=== PATIENT | male | born 1980 | race American Indian/Alaskan Native ===

== ENCOUNTER 2021-05-03 01:23 | Emergency (ER) | payer SELFPAY ==
[2021-05-03] MEDS ORDERED: ACETAMINOPHEN 500 MG TAB PO ONE (04:58)
--- NOTE | 2021-05-03 05:54 | XRay Report ---
LEFT ANKLE 3 VIEWS INDICATION / CLINICAL INFORMATION: Left ankle pain/injury COMPARISON: None available. FINDINGS: BONES and JOINT(S): No acute fracture or subluxation. No significant arthritis. SOFT TISSUES: No significant abnormality. ADDITIONAL FINDINGS: None. IMPRESSION: 1. No acute findings. Signer Name: Carson Sanchez MD Signed: 05/03/2021 5:50 AM Workstation Name: [id number]
--- NOTE | 2021-05-03 05:59 | XRay Report ---
LEFT KNEE 3 VIEWS INDICATION / CLINICAL INFORMATION: Left knee injury after fall. COMPARISON: None available. FINDINGS: BONES and JOINT(S): No acute fracture or subluxation. There is moderate tricompartmental osteoarthrit is. SOFT TISSUES: Mild generalized edema is noted with calcification seen laterally along the knee. ADDITIONAL FINDINGS: None. IMPRESSION: 1. No acute findings. 2. Moderate osteoarthritis. Signer Name: Carson Sanchez MD Signed: 05/03/2021 5:54 AM Workstation Name: [id number]
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
[2021-05-03] MEDS ORDERED: IBUPROFEN 600 MG TAB PO ONE (06:37)
[2021-05-03] MEDS ORDERED: cloNIDine 0.1 MG TAB PO ONE (06:37)
[2021-05-03 07:49] VITALS: BP 162/94
== END 2021-05-03 07:54 | disposition home or self-care (01) ==
LOC: ED 01:23
DX: S83.92XA Sprain of unspecified site of left knee, initial encounter (principal); S90.02XA Contusion of left ankle, initial encounter; I10 Essential (primary) hypertension; Z87.891 Personal history of nicotine dependence; W19.XXXA Unspecified fall, initial encounter; Y93.53 Activity, golf; Y92.39 Other specified sports and athletic area as the place of occurrence of the external cause; Y99.8 Other external cause status
CPT/HCPCS: 99283

== ENCOUNTER 2021-11-02 18:06 | Inpatient (IN) | payer OTHER ==
--- NOTE | 2021-11-02 20:46 | Event Note ---
ED Screening Note Date of service: 11/02/21 Time: 20:45 ED Screening Note: Patient presents from his PCP for possible new onset CHF He complains of bilateral leg swelling and shortness of breath for 2 months History of hypertension, patient has been off of his blood pressure medication for 5 months He also admits to some chest pains Patient is morbidly obese This initial assessment/diagnostic orders/clinical plan/treatment(s) is/are subject to change based on patients health status, clinical progression and re- assessment by fellow clinical providers in the ED. Further treatment and workup at subsequent clinical providers discretion. Patient/guardian urged not to elope from the ED as their condition may be serious if not clinically assessed and managed. Initial orders include: Labs Chest x-ray EKG
[2021-11-02 20:56] LABS: Basophils % (Auto) 0.4 % (0.0-1.8); Eosinophils # (Auto) 0.3 K/mm3 (0.0-0.4); Lymphocytes # (Auto) 1.3 K/mm3 (1.2-5.4); Lymphocytes % (Auto) 19.7 % (13.4-35.0); Mean Corpuscular HGB Conc 31 % (32-34); Mean Corpuscular Volume 85 fl (84-94); Monocytes # (Auto) 0.6 K/mm3 (0.0-0.8); Monocytes % (Auto) 8.4 % (0.0-7.3); Platelet Count 247 K/mm3 (140-440); Red Blood Count 5.19 M/mm3 (3.65-5.03); Red Cell Distribution Width 15.5 % (13.2-15.2)
[2021-11-02 20:58] LABS: Hematocrit 43.9 % (35.5-45.6); Hemoglobin 13.5 gm/dl (11.8-15.2)
--- NOTE | 2021-11-02 21:02 | XRay Report ---
CHEST 2 VIEWS INDICATION / CLINICAL INFORMATION: SOB. COMPARISON: None available. FINDINGS: SUPPORT DEVICES: None. HEART / MEDIASTINUM: No significant abnormality. LUNGS / PLEURA: Bilateral interstitial prominence. No pneumothorax. ADDITIONAL FINDINGS: Numerous metallic BBs in the left chest wall. IMPRESSION: 1. Bilateral interstitial prominence can be seen with mild edema or small airways disease. Recommend clinical correlation. Signer Name: Jung Cunha MD Signed: 11/02/2021 8:58 PM Workstation Name: [id number]
[2021-11-02] MEDS ORDERED: FUROSEMIDE 40 MG/4 ML INJ IV ONE (21:03)
[2021-11-02 21:23] LABS: Alanine Aminotransferase 27 units/L (7-56); Albumin 3.8 g/dL (3.9-5); BUN/Creatinine Ratio 10; Blood Urea Nitrogen 11 mg/dL (9-20); Calcium 9.2 mg/dL (8.4-10.2); Hemolysis Index 5
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
[2021-11-03] MEDS ORDERED: ONDANSETRON 4 MG/2 ML INJ IV PRN (00:49)
[2021-11-03] MEDS ORDERED: ALBUTEROL 2.5 MG/3 ML NEBU IH PRN (00:49)
[2021-11-03] MEDS ORDERED: HYDROmorphone 1 MG/1 ML INJ IV PRN (00:49)
[2021-11-03] MEDS ORDERED: MORPHINE 2 MG/1 ML INJ IV PRN (00:49)
[2021-11-03] MEDS ORDERED: NITROGLYCERIN 0.4 MG TAB SUBL SL PRN (00:49)
[2021-11-03] MEDS ORDERED: ACETAMINOPHEN 325 MG TAB PO PRN (00:49)
[2021-11-03] MEDS ORDERED: BACLOFEN 10 MG TAB PO PRN (00:52)
[2021-11-03] MEDS ORDERED: traMADol 50 MG TAB PO PRN (00:52)
--- NOTE | 2021-11-03 00:58 | History and Physical Report ---
<BEN LUCAS - Last Filed: 11/03/21 00:53> History of Present Illness Date of examination: 11/03/21 Date of admission: 11/03/21 Chief complaint: Shortness of breath leg swelling History of present illness: 41-year-old male with past medical history of hypertension who is noncompliant with medications and morbid obesity was brought to the emergency room because of shortness of breath for the last couple of weeks. Patient has had increased shortness of breath with exertion orthopnea leg swelling. Patient states he can walk only a few feet without getting short of breath. Patient also states that he has had some episodes of narcolepsy where he will be sitting and follow-up sleep for several hours. Denies any chest pain fever chills cough cold or congestion at this time. In the emergency room patient proBNP is 56.66 but chest x-ray shows bilateral interstitial prominence can be seen with mild edema or small airway disease. So going to admit the patient with diagnosis of CHF. We will put the patient on CHF pathway and order echocardiogram Med rec is done Past History Past Medical History: hypertension, other (Morbid obesity) Medications and Allergies Allergies Allergy/AdvReac Type Severity Reaction Status Date / Time No Known Allergies Allergy Verified 11/02/21 19:48 Home Medications Medication Instructions Recorded Confirmed Last Taken Type Baclofen 20 mg PO Q12H PRN #24 tablet 05/03/21 Unknown Rx Ibuprofen [Motrin] 800 mg PO Q8HR PRN #30 tablet 05/03/21 Unknown Rx amLODIPine 10 mg PO DAILY #30 tab 05/03/21 Unknown Rx lisinopriL [Lisinopril] 20 mg PO DAILY #30 tablet 05/03/21 Unknown Rx traMADoL [Ultram] 50 mg PO Q6HR PRN #12 tablet 05/03/21 Unknown Rx Review of Systems All systems: negative Cardiovascular: edema, shortness of breath, dyspnea on exertion, high blood pressure, leg edema Respiratory: shortness of breath, dyspnea on exertion Exam - Constitutional Vitals: Temp Pulse Resp BP Pulse Ox 99.3 F 95 H 20 178/99 92 11/02/21 19:43 11/02/21 19:43 11/02/21 19:43 11/02/21 19:43 11/02/21 19:43 General appearance: Present: no acute distress, well-nourished - EENT Eyes: Present: PERRL ENT: hearing intact, clear oral mucosa - Neck Neck: Present: supple, normal ROM - Respiratory Respiratory effort: normal Respiratory: bilateral: rales - Cardiovascular Heart Sounds: Present: S1 & S2. Absent: rub, click - Extremities Extremities: pulses symmetrical Extremity abnormal: edema Peripheral Pulses: within normal limits - Abdominal General gastrointestinal: Present: soft, non-tender, non-distended, normal bowel sounds Male genitourinary: Present: normal - Integumentary Integumentary: Present: clear, warm, dry - Musculoskeletal Musculoskeletal: gait normal, strength equal bilaterally - Psychiatric Psychiatric: appropriate mood/affect, intact judgment & insight - Neurologic Neurologic: CNII-XII intact, moves all extremities HEART Score - HEART Score Troponin: Troponin T < 0.010 ng/mL (0.00-0.029) 11/02/21 20:39 Results - Labs CBC & Chem 7: 11/02/21 20:39 11/02/21 20:39 Labs: Laboratory Last Values WBC 6.8 K/mm3 (4.5-11.0) 11/02/21 20:39 RBC 5.19 M/mm3 (3.65-5.03) H 11/02/21 20:39 Hgb 13.5 gm/dl (11.8-15.2) 11/02/21 20:39 Hct 43.9 % (35.5-45.6) 11/02/21 20:39 MCV 85 fl (84-94) 11/02/21 20:39 MCH 26 pg (28-32) L 11/02/21 20:39 MCHC 31 % (32-34) L 11/02/21 20:39 RDW 15.5 % (13.2-15.2) H 11/02/21 20:39 Plt Count 247 K/mm3 (140-440) 11/02/21 20:39 Lymph % (Auto) 19.7 % (13.4-35.0) 11/02/21 20:39 [place] % (Auto) 8.4 % (0.0-7.3) H 11/02/21 20:39 Eos % (Auto) 5.0 % (0.0-4.3) H 11/02/21 20:39 Baso % (Auto) 0.4 % (0.0-1.8) 11/02/21 20:39 Lymph # (Auto) 1.3 K/mm3 (1.2-5.4) 11/02/21 20:39 [place] # (Auto) 0.6 K/mm3 (0.0-0.8) 11/02/21 20:39 Eos # (Auto) 0.3 K/mm3 (0.0-0.4) 11/02/21 20:39 Baso # (Auto) 0.0 K/mm3 (0.0-0.1) 11/02/21 20:39 Seg Neutrophils % 66.5 % (40.0-70.0) 11/02/21 20:39 Seg Neutrophils # 4.5 K/mm3 (1.8-7.7) 11/02/21 20:39 Sodium 142 mmol/L (137-145) 11/02/21 20:39 Potassium 3.8 mmol/L (3.6-5.0) 11/02/21 20:39 Chloride 100.4 mmol/L (98-107) 11/02/21 20:39 Carbon Dioxide 29 mmol/L (22-30) 11/02/21 20:39 Anion Gap 16 mmol/L 11/02/21 20:39 BUN 11 mg/dL (9-20) 11/02/21 20:39 Creatinine 1.1 mg/dL (0.8-1.3) 11/02/21 20:39 Estimated GFR > 60 ml/min 11/02/21 20:39 BUN/Creatinine Ratio 10 % 11/02/21 20:39 Glucose 128 mg/dL (75-100) H 11/02/21 20:39 Calcium 9.2 mg/dL (8.4-10.2) 11/02/21 20:39 Total Bilirubin 0.20 mg/dL (0.1-1.2) 11/02/21 20:39 AST 21 units/L (5-40) 11/02/21 20:39 ALT 27 units/L (7-56) 11/02/21 20:39 Alkaline Phosphatase 75 units/L (35-129) 11/02/21 20:39 Troponin T < 0.010 ng/mL (0.00-0.029) 11/02/21 20:39 NT-Pro-B Natriuret Pep 56.66 pg/mL (0-450) 11/02/21 20:39 Total Protein 7.5 g/dL (6.3-8.2) 11/02/21 20:39 Albumin 3.8 g/dL (3.9-5) L 11/02/21 20:39 Albumin/Globulin Ratio 1.0 % 11/02/21 20:39 - Imaging and Cardiology Chest x-ray: report reviewed Assessment and Plan VTE prophylaxis?: Chemical Plan of care discussed with patient/family: Yes - Patient Problems (1) Acute exacerbation of CHF (congestive heart failure) Current Visit: Yes Status: Acute Plan to address problem: Admit the patient to the [facility]. Put the patient on 2 g sodium diet. Fluid restriction. Lasix 40 mg IV every 12 hours. Maintain input output. Daily weight. Echocardiogram. Consult cardiology if needed (2) Morbid obesity Current Visit: Yes Status: Acute Plan to address problem: We counseled the patient regarding weight reduction. Outpatient referral with bariatric surgery (3) Hypertensive urgency Current Visit: Yes Status: Acute Plan to address problem: Lisinopril 20 mg p.o. daily. Amlodipine 10 mg p.o. daily. Hydralazine 10 mg IV every 6 hours as needed. We will monitor the patient closely (4) Hypoxia Current Visit: Yes Status: Acute Plan to address problem: Oxygen by nasal cannula 3 L/min. DuoNeb by nebulizer every 4 hours. Albuterol via nebulizer every 4 hours as needed (5) DVT prophylaxis Current Visit: Yes Status: Acute Plan to address problem: Heparin 5000 units subcu every 8 hours for DVT prophylaxis. Pepcid 20 mg p.o. twice daily for GI prophylaxis. Patient is a full code <PACHECO JACKMAN R - Last Filed: 11/04/21 02:51> History of Present Illness Date of admission: 11/03/21 00:49 Medications and Allergies Active Meds: Active Medications Acetaminophen (Acetaminophen 325 Mg Tab) 650 mg PO Q4H PRN PRN Reason: Pain MILD(1-3)/Fever >100.5/MOORE Albuterol (Albuterol 2.5 Mg/3 Ml Nebu) 2.5 mg IH Q4HRT PRN PRN Reason: Shortness Of Breath Albuterol/Ipratropium (Ipratropium/Albuterol Sulfate 3 Ml Ampul.Neb) 1 ampul IH Q6HRT [facility] Last Admin: 11/03/21 21:34 Dose: 1 ampul Amlodipine Besylate (Amlodipine 10 Mg Tab) 10 mg PO DAILY [facility] Last Admin: 11/03/21 11:00 Dose: 10 mg Baclofen (Baclofen 10 Mg Tab) 20 mg PO Q12H PRN PRN Reason: Muscle Spasm Last Admin: 11/03/21 12:32 Dose: 20 mg Famotidine (Famotidine 20 Mg Tab) 20 mg PO BID [facility] Last Admin: 11/03/21 22:51 Dose: 20 mg Furosemide (Furosemide 40 Mg/4 Ml Inj) 40 mg IV BID@0600,1800 [facility] Last Admin: 11/03/21 19:43 Dose: 40 mg Heparin Sodium (Porcine) (Heparin 5,000 Unit/1 Ml Vial) 5,000 unit SUB-Q Q8HR [facility] Last Admin: 11/03/21 22:49 Dose: 5,000 unit Hydralazine HCl (Hydralazine 20 Mg/1 Ml Inj) 10 mg IV Q6H PRN PRN Reason: Blood Pressure Lisinopril (Lisinopril 20 Mg Tab) 20 mg PO DAILY [facility] Last Admin: 11/03/21 11:00 Dose: 20 mg Nitroglycerin (Nitroglycerin 0.4 Mg Tab Subl) 0.4 mg SL .Q5MIN PRN PRN Reason: Chest Pain Ondansetron HCl (Ondansetron 4 Mg/2 Ml Inj) 4 mg IV Q8H PRN PRN Reason: Nausea And Vomiting Sodium Chloride (Sodium Chloride 0.9% 10 Ml Flush Syringe) 10 ml IV BID [facility] Last Admin: 11/03/21 22:51 Dose: 10 ml Sodium Chloride (Sodium Chloride 0.9% 50 Ml Ivpb) 10 ml IV PRN PRN PRN Reason: FLUSH Tramadol HCl (Tramadol 50 Mg Tab) 50 mg PO Q6H PRN PRN Reason: PAIN (1-3) Last Admin: 11/03/21 12:28 Dose: 50 mg Exam - Constitutional Vitals: Temp Pulse Resp BP Pulse Ox 98.1 F 89 16 108/69 92 11/03/21 22:04 11/03/21 22:04 11/03/21 22:04 11/03/21 22:04 11/04/21 00:49 HEART Score - HEART Score Troponin: Troponin T < 0.010 ng/mL (0.00-0.029) 11/02/21 20:39 Results - Labs CBC & Chem 7: 11/02/21 20:39 11/03/21 13:01 Labs: Laboratory Last Values WBC 6.8 K/mm3 (4.5-11.0) 11/02/21 20:39 RBC 5.19 M/mm3 (3.65-5.03) H 11/02/21 20:39 Hgb 13.5 gm/dl (11.8-15.2) 11/02/21 20:39 Hct 43.9 % (35.5-45.6) 11/02/21 20:39 MCV 85 fl (84-94) 11/02/21 20:39 MCH 26 pg (28-32) L 11/02/21 20:39 MCHC 31 % (32-34) L 11/02/21 20:39 RDW 15.5 % (13.2-15.2) H 11/02/21 20:39 Plt Count 247 K/mm3 (140-440) 11/02/21 20:39 Lymph % (Auto) 19.7 % (13.4-35.0) 11/02/21 20:39 Swift % (Auto) 8.4 % (0.0-7.3) H 11/02/21 20:39 Eos % (Auto) 5.0 % (0.0-4.3) H 11/02/21 20:39 Baso % (Auto) 0.4 % (0.0-1.8) 11/02/21 20:39 Lymph # (Auto) 1.3 K/mm3 (1.2-5.4) 11/02/21 20:39 [place] # (Auto) 0.6 K/mm3 (0.0-0.8) 11/02/21 20:39 Eos # (Auto) 0.3 K/mm3 (0.0-0.4) 11/02/21 20:39 Baso # (Auto) 0.0 K/mm3 (0.0-0.1) 11/02/21 20:39 Seg Neutrophils % 66.5 % (40.0-70.0) 11/02/21 20:39 Seg Neutrophils # 4.5 K/mm3 (1.8-7.7) 11/02/21 20:39 D-Dimer 348.06 ng/mlDDU (0-234) H 11/03/21 13:01 Sodium 143 mmol/L (137-145) 11/03/21 13:01 Potassium 3.6 mmol/L (3.6-5.0) 11/03/21 13:01 Chloride 98.0 mmol/L (98-107) 11/03/21 13:01 Carbon Dioxide 35 mmol/L (22-30) H 11/03/21 13:01 Anion Gap 14 mmol/L 11/03/21 13:01 BUN 10 mg/dL (9-20) 11/03/21 13:01 Creatinine 1.1 mg/dL (0.8-1.3) 11/03/21 13:01 Estimated GFR > 60 ml/min 11/03/21 13:01 BUN/Creatinine Ratio 9 % 11/03/21 13:01 Glucose 144 mg/dL (75-100) H 11/03/21 13:01 Calcium 9.0 mg/dL (8.4-10.2) 11/03/21 13:01 Magnesium 1.80 mg/dL (1.7-2.3) 11/03/21 13:01 Total Bilirubin 0.20 mg/dL (0.1-1.2) 11/02/21 20:39 AST 21 units/L (5-40) 11/02/21 20:39 ALT 27 units/L (7-56) 11/02/21 20:39 Alkaline Phosphatase 75 units/L (35-129) 11/02/21 20:39 Lactate Dehydrogenase 227 units/L (91-180) H 11/03/21 13:01 Troponin T < 0.010 ng/mL (0.00-0.029) 11/02/21 20:39 C-Reactive Protein 1.20 mg/dL (0.00-1.30) 11/03/21 13:01 NT-Pro-B Natriuret Pep 56.66 pg/mL (0-450) 11/02/21 20:39 Total Protein 7.5 g/dL (6.3-8.2) 01/24/22 20:39 Albumin 3.8 g/dL (3.9-5) L 11/02/21 20:39 Albumin/Globulin Ratio 1.0 % 11/02/21 20:39 Assessment and Plan Assessment and plan: Chart reviewed, patient interviewed and examined the ED on 11/03/2021 with about 11:30 AM. Patient is extremely morbidly obese. He was never screen for 0.6. Potassium history he has is hypertension. He has been experiencing worsening dyspnea since 3 months in went to see his PCP yesterday primary referred to ER. Not vaccinated against Covidien 19. Is currently alert and oriented without distress. O2 was weaned to room air currently. No significant cough. No fever or chills. On exam, no acute respiratory distress, lungs clear, heart regular rhythm, abdomen obese nontender, two to 3+ pretibial edema. COVID-19 PCR test ordered/pending. Chest x-ray is borderline abnormal. Echo is pending. Labs fairly unremarkable. D-dimer normal. CRP 1.5. We will continue current management awaiting echo report. Discussed with the patient in detail.
[2021-11-03] MEDS ORDERED: hydrALAZINE 20 MG/1 ML INJ IV PRN (01:00)
[2021-11-03] MEDS: HEPARIN 5,000 UNIT/1 ML VIAL SUB-Q SCH ×3 (06:46→22:49)
[2021-11-03] MEDS: FUROSEMIDE 40 MG/4 ML INJ IV SCH ×2 (06:46→19:43)
[2021-11-03] MEDS ORDERED: SODIUM CHLORIDE 0.9% 50 ML IVPB IV PRN (07:45)
--- NOTE | 2021-11-03 09:00 | Electrocardiograph Report ---
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
[2021-11-03] MEDS: FAMOTIDINE 20 MG TAB PO SCH ×2 (10:00→22:51)
[2021-11-03] MEDS: LISINOPRIL 20 MG TAB PO SCH (11:00)
[2021-11-03] MEDS: amLODIPine 10 MG TAB PO SCH (11:00)
[2021-11-03 13:31] LABS: BUN/Creatinine Ratio 9; Blood Urea Nitrogen 10 mg/dL (9-20); Hemolysis Index 7
[2021-11-03 13:35] LABS: C-Reactive Protein 1.2 mg/dL (0.00-1.30)
[2021-11-03] MEDS: IPRATROPIUM/ALBUTEROL SULFATE 3 ML AMPUL.NEB IH SCH ×2 (21:34)
[2021-11-04] MEDS: IPRATROPIUM/ALBUTEROL SULFATE 3 ML AMPUL.NEB IH SCH ×3 (03:24→20:01)
[2021-11-04] MEDS: FUROSEMIDE 40 MG/4 ML INJ IV SCH ×2 (06:35→18:06)
[2021-11-04] MEDS: HEPARIN 5,000 UNIT/1 ML VIAL SUB-Q SCH ×2 (06:35→14:26)
--- NOTE | 2021-11-04 08:53 | Electrocardiograph Report ---
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
[2021-11-04] MEDS: LISINOPRIL 20 MG TAB PO SCH (10:36)
[2021-11-04] MEDS: FAMOTIDINE 20 MG TAB PO SCH (10:36)
[2021-11-04] MEDS: amLODIPine 10 MG TAB PO SCH (10:36)
[2021-11-04 11:57] LABS: Basophils % (Auto) 0.4 % (0.0-1.8); Eosinophils # (Auto) 0.3 K/mm3 (0.0-0.4); Eosinophils % (Auto) 4.6 % (0.0-4.3); Lymphocytes # (Auto) 1.2 K/mm3 (1.2-5.4); Lymphocytes % (Auto) 17.6 % (13.4-35.0); Mean Corpuscular HGB Conc 31 % (32-34); Mean Corpuscular Volume 84 fl (84-94); Monocytes # (Auto) 0.5 K/mm3 (0.0-0.8); Monocytes % (Auto) 7.3 % (0.0-7.3); Platelet Count 254 K/mm3 (140-440); Red Blood Count 5.51 M/mm3 (3.65-5.03); Red Cell Distribution Width 15.5 % (13.2-15.2)
[2021-11-04 11:59] LABS: Hemoglobin 14.1 gm/dl (11.8-15.2)
[2021-11-04 12:00] LABS: Hematocrit 46.2 % (35.5-45.6)
[2021-11-04 12:10] LABS: BUN/Creatinine Ratio 13; Blood Urea Nitrogen 13 mg/dL (9-20); Calcium 9.5 mg/dL (8.4-10.2); Hemolysis Index 13
[2021-11-04 12:12] LABS: Alanine Aminotransferase 28 units/L (7-56); BUN/Creatinine Ratio 11; Blood Urea Nitrogen 12 mg/dL (9-20); Calcium 9.4 mg/dL (8.4-10.2); Hemolysis Index 15
--- NOTE | 2021-11-04 13:21 | Consultation ---
History of Present Illness Consult date: 11/04/21 Consult reason: shortness of breath, other (Edema) History of present illness: The patient is a 41-year-old man with morbid obesity, sleep apnea and chronic hypertension. He reports noncompliance with management of his multiple com orbidities, has not seen a doctor in several years and has not complied with antihypertensive therapy. He reported to his doctor for the first time yesterday, complaining of 1 to 2 weeks of lower extremity edema, fatigue and shortness of breath. He was sent to the emergency room for further evaluation and management. Systolic blood pressure was 178 on arrival to the emergency room. Cardiology consultation was requested to assess him for possible congestive heart failure. The patient denies chest pain, denies palpitations, denies any prior cardiac history. Work-up with an ECG in the emergency room showed a normal sinus rhythm, leftward axis, but otherwise normal ECG. Chest x-ray revealed a normal- sized cardiac silhouette and clear lungs with no heart failure or interstitial edema. Troponin level was negative. Today, he underwent an echocardiogram that showed left ventricular systolic function at the lower limits of normal, ejection fraction 45 to 50%. There was moderate, concentric left ventricle hypertrophy. There were no severe valvular lesions noted. Past History Past Medical History: hypertension, other (Morbid obesity) Medications and Allergies Allergies Allergy/AdvReac Type Severity Reaction Status Date / Time No Known Allergies Allergy Verified 11/02/21 19:48 Home Medications Medication Instructions Recorded Confirmed Last Taken Type Baclofen 20 mg PO Q12H PRN #24 tablet 05/03/21 Unknown Rx Ibuprofen [Motrin] 800 mg PO Q8HR PRN #30 tablet 05/03/21 Unknown Rx amLODIPine 10 mg PO DAILY #30 tab 05/03/21 Unknown Rx lisinopriL [Lisinopril] 20 mg PO DAILY #30 tablet 05/03/21 Unknown Rx traMADoL [Ultram] 50 mg PO Q6HR PRN #12 tablet 05/03/21 Unknown Rx Active Meds: Active Medications Acetaminophen (Acetaminophen 325 Mg Tab) 650 mg PO Q4H PRN PRN Reason: Pain MILD(1-3)/Fever >100.5/MOORE Albuterol (Albuterol 2.5 Mg/3 Ml Nebu) 2.5 mg IH Q4HRT PRN PRN Reason: Shortness Of Breath Albuterol/Ipratropium (Ipratropium/Albuterol Sulfate 3 Ml Ampul.Neb) 1 ampul IH TIDRT [facility] Last Admin: 11/04/21 13:05 Dose: 1 ampul Amlodipine Besylate (Amlodipine 10 Mg Tab) 10 mg PO DAILY [facility] Last Admin: 11/04/21 10:36 Dose: 10 mg Baclofen (Baclofen 10 Mg Tab) 20 mg PO Q12H PRN PRN Reason: Muscle Spasm Last Admin: 11/03/21 12:32 Dose: 20 mg Famotidine (Famotidine 20 Mg Tab) 20 mg PO BID [facility] Last Admin: 11/04/21 10:36 Dose: 20 mg Furosemide (Furosemide 40 Mg/4 Ml Inj) 40 mg IV BID@0600,1800 [facility] Last Admin: 11/04/21 06:35 Dose: 40 mg Heparin Sodium (Porcine) (Heparin 5,000 Unit/1 Ml Vial) 5,000 unit SUB-Q Q8HR [facility] Last Admin: 11/04/21 06:35 Dose: 5,000 unit Hydralazine HCl (Hydralazine 20 Mg/1 Ml Inj) 10 mg IV Q6H PRN PRN Reason: Blood Pressure Lisinopril (Lisinopril 20 Mg Tab) 20 mg PO DAILY [facility] Last Admin: 11/04/21 10:36 Dose: 20 mg Nitroglycerin (Nitroglycerin 0.4 Mg Tab Subl) 0.4 mg SL .Q5MIN PRN PRN Reason: Chest Pain Ondansetron HCl (Ondansetron 4 Mg/2 Ml Inj) 4 mg IV Q8H PRN PRN Reason: Nausea And Vomiting Sodium Chloride (Sodium Chloride 0.9% 10 Ml Flush Syringe) 10 ml IV BID [facility] Last Admin: 11/03/21 22:51 Dose: 10 ml Sodium Chloride (Sodium Chloride 0.9% 50 Ml Ivpb) 10 ml IV PRN PRN PRN Reason: FLUSH Tramadol HCl (Tramadol 50 Mg Tab) 50 mg PO Q6H PRN PRN Reason: PAIN (1-3) Last Admin: 11/03/21 12:28 Dose: 50 mg Review of Systems Cardiovascular: edema, shortness of breath, no chest pain, no orthopnea, no palpitations, no rapid/irregular heart beat, no syncope, no lightheadedness Physical Examination Vital Signs Temp Pulse Resp BP Pulse Ox 99.3 F 95 H 20 178/99 92 11/02/21 19:43 11/02/21 19:43 11/02/21 19:43 11/02/21 19:43 11/02/21 19:43 General appearance: no acute distress HEENT: Positive: PERRL Neck: Positive: neck supple Cardiac: Positive: Reg Rate and Rhythm Lungs: Positive: Decreased Breath Sounds Neuro: Positive: Grossly Intact Abdomen: Positive: Soft Male genitourinary: Positive: deferred Skin: Positive: Clear Extremities: Present: +1 Edema Results 11/04/21 10:51 11/04/21 10:51 Cardiac Enzymes 11/03/21 11/04/21 Range/Units 13:01 10:51 AST 21 (5-40) units/L Lactate Dehydrogenase 227 H (91-180) units/L CBC 11/04/21 Range/Units 10:51 WBC 6.6 (4.5-11.0) K/mm3 RBC 5.51 H (3.65-5.03) M/mm3 Hgb 14.1 (11.8-15.2) gm/dl Hct 46.2 H (35.5-45.6) % Plt Count 254 (140-440) K/mm3 Lymph # (Auto) 1.2 (1.2-5.4) K/mm3 [place] # (Auto) 0.5 (0.0-0.8) K/mm3 Eos # (Auto) 0.3 (0.0-0.4) K/mm3 Baso # (Auto) 0.0 (0.0-0.1) K/mm3 Comprehensive Metabolic Panel 11/03/21 11/04/21 11/04/21 Range/Units 13:01 10:51 10:51 Sodium 143 140 140 (137-145) mmol/L Potassium 3.6 3.9 3.7 (3.6-5.0) mmol/L Chloride 98.0 95.6 L 95.7 L (98-107) mmol/L Carbon Dioxide 35 H 35 H 33 H (22-30) mmol/L BUN 10 13 12 (9-20) mg/dL Creatinine 1.1 1.0 1.1 (0.8-1.3) mg/dL Glucose 144 H 154 H 150 H (75-100) mg/dL Calcium 9.0 9.5 9.4 (8.4-10.2) mg/dL AST 21 (5-40) units/L ALT 28 (7-56) units/L Alkaline Phosphatase 77 (35-129) units/L Total Protein 8.1 (6.3-8.2) g/dL Albumin 4.0 (3.9-5) g/dL EKG interpretations - Telemetry EKG Rhythm: Sinus Rhythm Assessment and Plan - Patient Problems (1) Shortness of breath Current Visit: Yes Status: Acute Plan to address problem: Patient presents with shortness of breath and 1+ edema, etiology is uncertain whether his symptoms are due to his chronic pulmonary disease or cardiogenic. EKG is benign, troponin is normal, chest x-ray shows no interstitial edema. E chocardiogram shows left ventricular ejection fraction 45 to 50%. We will optimize antihypertensive management, diuretic therapy, salt restricted diet. Refer to pulmonary for management of the patient's chronic lung disease and obstructive sleep apnea. Further cardiac evaluation and management will depend on clinical course.
[2021-11-04 14:39] VITALS: BP 144/76
--- NOTE | 2021-11-04 18:07 | Discharge Summary ---
Providers - Providers Date of Admission: 11/03/21 00:49 Date of discharge: 11/04/21 Attending physician: NIKKIE JACKMAN MD 11/04/21 08:27 Consult to Physician [CONS] Routine Comment: Consulting Provider: VERONIKA GARCIA Physician Instructions: Reason For Exam: CHF Primary care physician: [facility] [employer] [employer] Hospitalization Condition: Stable Disposition: HOME / SELF CARE / HOMELESS Final Discharge Diagnosis (Prints w/discharge instructions): Hypertensive heart disease. morbid obesity. high risk for sleep apnea Exam - Constitutional Vitals: Temp Pulse Resp BP Pulse Ox 98.2 F 95 H 15 144/76 95 11/04/21 14:38 11/04/21 14:38 11/04/21 14:38 11/04/21 14:38 11/04/21 14:38 General appearance: Present: no acute distress, obese - EENT Eyes: Present: PERRL, EOM intact ENT: hearing intact, clear oral mucosa - Neck Neck: Present: supple - Respiratory Respiratory effort: normal Respiratory: bilateral: CTA - Extremities Extremity abnormal: edema - Abdominal General gastrointestinal: Present: soft, non-tender - Integumentary Integumentary: Absent: rash - Musculoskeletal Musculoskeletal: strength equal bilaterally - Neurologic Neurologic: no focal deficits Plan Activity: advance as tolerated Diet: low fat, low cholesterol, low salt, low carbohydrate Additional Instructions: Have your blood pressure well controlled. visit lung doctor to get checked for sleep apnea. eat healthy diet and lose weight Follow up with: ARIELLA CARMICHAEL MD [Primary Care Provider] - 7 Days KALIN SAEED MD [Staff Physician] - 14 Days Prescriptions: carvediloL [Coreg] 6.25 mg PO BID #60 tablet hydroCHLOROthiazide [HCTZ] 25 mg PO QDAY #30 tablet
--- NOTE | 2021-11-04 18:11 | Discharge Summary ---
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
== END 2021-11-04 19:17 | disposition home or self-care (01) | DRG 292 ==
LOC: ED 18:06 → 3A 11-03 00:49
PROVIDERS: ADMIT Hospitalist; ATTEND Internal Medicine
PROC: 5A09357 Assistance with Respiratory Ventilation, Less than 24 Consecutive Hours, Continuous Positive Airway Pressure (ICD-10-PCS; principal; 2021-11-03)
DX: I11.0 Hypertensive heart disease with heart failure (principal); Z68.44 Body mass index [BMI] 60.0-69.9, adult; I16.0 Hypertensive urgency; I50.9 Heart failure, unspecified; R09.02 Hypoxemia; Z20.822 Contact with and (suspected) exposure to COVID-19; E66.01 Morbid (severe) obesity due to excess calories; Z87.891 Personal history of nicotine dependence; Z79.899 Other long term (current) drug therapy
CPT/HCPCS: 36415; 71046; 80048; 80053; 82962; 83036; 83615; 83735; 83880; 84439; 84443; 84484; 85025; 85379; 86140; 93005; 93010; 93306; 94640; 94660; 94760; G0378; J1644; J1940; U0003